=== PATIENT | male | born 1995 | race Caucasian/White ===

== ENCOUNTER 2019-06-01 20:33 | Emergency (ER) | payer BC, OTHER ==
[~2019-06-01] VITALS: Ht 185.4 cm; Wt 70.8 kg
[2019-06-01 20:39] VITALS: BP 130/77
[2019-06-01] MEDS ORDERED: METHOCARBAMOL 750 MG TABLET ONE ×2 (21:38→21:40)
[2019-06-01] MEDS ORDERED: KETOROLAC 30 MG/1 ML ONE (21:38)
[2019-06-01] MEDS ORDERED: METHOCARBAMOL 750 MG TABLET PO ONE (22:00)
[2019-06-01] MEDS ORDERED: KETOROLAC 30 MG/1 ML IM ONE (22:00)
== END 2019-06-01 22:08 | disposition home or self-care (01) ==
LOC: ED 21:45
DX: M54.2 Cervicalgia (principal); V49.49XA Driver injured in collision with other motor vehicles in traffic accident, initial encounter; Y93.89 Activity, other specified; Y92.89 Other specified places as the place of occurrence of the external cause; Y99.8 Other external cause status
CPT/HCPCS: 96372; 99283; J1885